=== PATIENT | male | born 2000 | race Caucasian/White ===

== ENCOUNTER 2025-02-10 18:30 | Emergency (ER) | payer OTHER ==
[~2025-02-10] VITALS: Ht 188 cm; Wt 96.5 kg
[2025-02-10 20:21] VITALS: BP 132/68; TEMP 96.8; O2SAT 99
[2025-02-10] MEDS ORDERED: CETI10CH PO (21:03)
[2025-02-10] MEDS ORDERED: TRIA1CR80 TOP (21:03)
== END 2025-02-10 21:19 | disposition home or self-care (01) ==
LOC: M ED 18:30
DX: L23.7 Allergic contact dermatitis due to plants, except food (principal); J30.81 Allergic rhinitis due to animal (cat) (dog) hair and dander; J30.1 Allergic rhinitis due to pollen; J30.89 Other allergic rhinitis

== ENCOUNTER → 2025-02-19 | Outpatient (REF) | payer OTHER ==
[~2025-02-19] MED LIST: CETI10CH PO; TRIA1CR80 TOP
== END ==
LOC: M LAB REF 09:50
PROVIDERS: ATTEND Plastic Surgery Surgery of the Hand
DX: L72.0 Epidermal cyst (principal)